=== PATIENT | female | born 1935 | race Caucasian/White ===

== ENCOUNTER → 2017-07-15 | Outpatient (CLI) | payer OTHER, MEDICARE | LOC: CAT 13:06 | DX: R05 Cough (principal); I25.10 Atherosclerotic heart disease of native coronary artery without angina pectoris; I42.9 Cardiomyopathy, unspecified; Z87.01 Personal history of pneumonia (recurrent) ==

== ENCOUNTER → 2017-12-23 | Outpatient (CLI) | payer OTHER, MEDICARE | LOC: CAT 09:00 | DX: R91.1 Solitary pulmonary nodule (principal) ==